=== PATIENT | male | born 1965 | race Two or more races ===

== ENCOUNTER 2021-12-19 15:38 | Emergency (ER) | payer OTHER ==
[~2021-12-19] VITALS: Ht 177.8 cm; Wt 77.2 kg
[2021-12-19] MEDS ORDERED: ONDANSETRON HCL 4 MG/2 ML VIAL IV ONE (15:45)
[2021-12-19] MEDS ORDERED: ASPirin 81 mg TAB PO ONE (15:45)
[2021-12-19] MEDS ORDERED: MORPHINE SULFATE 4 MG/ML SYR/VIAL IV ONE (15:45)
[2021-12-19 16:05] VITALS: BP 162/98
[2021-12-19 16:20] LABS: Eosinophils # (auto) 0 10 ^3/uL (0-0.8); Hemoglobin 15.8 g/dL (13.5-17.5); White Blood Cell 8.4 10^3/uL (4.4-10.8)
[2021-12-19 16:21] LABS: Basophils # (auto) 0.1 10 ^3/uL (0-0.2); Eosinophils % (auto) 0.2 % (0.0-7.0); Hematocrit 46.7 % (41.0-53.0); Lymphocytes # (auto) 0.7 10 ^3/uL (0.4-5.4); Lymphocytes % (auto) 8.4 % (10.0-50.0); Mean Corpuscular Hemoglobin 36.4 pg (28.0-32.0); Mean Corpuscular Hgb Conc. 33.8 g/dL (32.0-36.0); Mean Corpuscular Volume 107.7 fL (80.0-100.0); Monocytes # (auto) 0.7 10 ^3/uL (0-1.3); Monocytes % (auto) 8.7 % (0.0-12.0); Neutrophils # (auto) 6.8 10 ^3/uL (1.6-8.6); Neutrophils % (auto) 81.7 % (37.0-80.0); Red Blood Cells 4.33 10^6/uL (4.5-5.90)
[2021-12-19 16:36] LABS: Albumin 4.4 g/dL (3.4-5.0); Calcium 9.3 mg/dL (8.5-10.1); Magnesium 1.9 mg/dL (1.6-2.6); Potassium 4.6 mmol/L (3.5-5.1)
[2021-12-19 16:39] LABS: BUN/Creatinine Ratio 19.4; Bilirubin, Total 1.7 mg/dL (0.2-1.0); Total Protein 7.9 g/dL (6.4-8.2)
== END 2021-12-19 22:25 | disposition left against medical advice (07) ==
LOC: EDBD 15:38 → ER 15:45
DX: R07.89 Other chest pain (principal); E87.8 Other disorders of electrolyte and fluid balance, not elsewhere classified; J44.9 Chronic obstructive pulmonary disease, unspecified; I10 Essential (primary) hypertension; F17.210 Nicotine dependence, cigarettes, uncomplicated
CPT/HCPCS: 36415; 71045; 80053; 83735; 84484; 85025; 93005